=== PATIENT | male | born 1940 | race Caucasian/White ===

== ENCOUNTER 2024-02-10 16:08 | Inpatient (IN) ==
[2024-02-10 16:59] LABS: Base Excess VBG 1.9 mEq/L; HCO3 VBG 28 mmol/L; Oxygen Saturation VBG < 60.0 %; PCO2 VBG 50 mmHg (38-50); PO2 VBG 23 mmHg; pH VBG 7.36 (7.36-7.41)
[2024-02-10 17:00] LABS: iSTAT Creatinine 1.4 mg/dl (0.6-1.3); iSTAT Hemoglobin 17.7 g/dl (14.0-18.0); iSTAT Ionized Calcium 1.15 mmol/l (1.12-1.32); iSTAT Potassium 4.4 mmol/L (3.3-5.0)
[2024-02-10] MEDS: OPTIRAY 320 125ml IV ONE (17:02)
[2024-02-10 17:09] LABS: Basophils # (auto) 0.04 K/uL (0.00-0.20); Basophils % (auto) 0.3 %; Eosinophils # (auto) 0.04 K/uL (0.00-0.50); Eosinophils % (auto) 0.3 %; Hematocrit (blood only) 54.7 % (42.0-52.0); Hemoglobin 17.8 g/dl (14.0-18.0); Immature Granulocytes # (auto) 0.07 K/uL (0.01-0.20); Immature Granulocytes % (auto) 0.5 %; Lymphocytes # (auto) 0.73 K/uL (1.20-3.40); Lymphocytes % (auto) 4.7 %; Mean Corpuscular Hemoglobin 30.4 pg (25.0-34.0); Mean Corpuscular Hgb Conc 32.5 g/dL (32.0-36.0); Mean Corpuscular Volume 93.3 fL (80.0-100.0); Mean Platelet Volume 12.6 fL (9.4-12.4); Monocytes # (auto) 0.99 K/uL (0.11-0.59); Monocytes % (auto) 6.4 %; Neutrophils # (auto) 13.63 K/uL (1.40-6.50); Neutrophils % (auto) 87.8 %; Platelet Count 106 K/uL (130-400); RDW Coefficient of Variation 15.3 % (11.5-14.5); RDW Standard Deviation 51.8 fL (36.4-46.3); Red Blood Count 5.86 M/uL (4.70-6.10)
--- NOTE | 2024-02-10 17:16 | CT Scan Report ---
EXAM: CT Angiography Chest With Intravenous Contrast INDICATION: Pulmonary embolism versus CHF. TECHNIQUE: Axial computed tomographic angiography images of the chest with intravenous contrast. Sagittal and coronal reformatted images were created and reviewed. This CT exam was performed using one or more of the following dose reduction techniques: automated exposure control, adjustment of the mA and/or kV according to patient size, and/or use of iterative reconstruction technique. MIP reconstructed images were created and reviewed. CONTRAST: 116ml of Optiray 320 was administered intravenously. COMPARISON: No relevant prior studies available. FINDINGS: Pulmonary arteries: There is a segmental pulmonary embolus to the right lower lobe series 3 image 35. No saddle embolus. Aorta: No acute change noted. No thoracic aortic aneurysm or dissection. Great vessels of aortic arch: Normal variant aberrant right subclavian artery. Lungs and pleural spaces: Small left and small to moderate right layering pleural effusions present. Effusion in the right base measures 6.4 cm thickness measured at the 10th posterior rib. No pneumothorax. Paraseptal and centrilobular emphysematous changes present. There is mild septal thickening with small foci of predominantly dependent groundglass density. No bronchiectasis. There is mild dependent atelectasis in the lower lobes. No mass. Heart: Cardiomegaly. The right heart is asymmetrically dilated. There is reflux of contrast into the IVC. No significant pericardial effusion. Mediastinum: The esophagus is dilated with air. Bones/joints: Degenerative changes noted throughout the spine and both shoulders. No lytic or blastic lesions noted. Soft tissues: No abnormality noted. Lymph nodes: No abnormality noted. No enlarged lymph nodes. IMPRESSION: 1. There is a right lower lobe segmental pulmonary embolus. No saddle embolus. 2. Findings of right heart strain present. 3. Mild CHF present. ACT 112: Negative or not required by law. Electronically signed by Ketty Melchor 02-10-2024 5:16 PM
[2024-02-10] MEDS: FUROSEMIDE 40 MG/4 ML VIAL IV ONE (17:20)
[2024-02-10] MEDS: Heparin IV Adult Wt-Based Standard w/ INITIAL Bolus Protocol IV STA (17:41)
[2024-02-10] MEDS ORDERED: HEPARIN SOD (PORCINE) 1000 UNIT/ML IV ONE (17:41)
--- NOTE | 2024-02-10 17:47 | Emergency Department Note ---
Impression & Plan Pulmonary embolism, CHF (congestive heart failure), Elevated troponin, Frequent PVCs, Acute hypoxic respiratory failure ED Provider Note NAME: MARIO MYRICK AGE: 84 SEX: M : 1940 ARRIVES VIA: Walk-In INFORMANT: Patient, ED PROVIDER(S): China Tubbs MD CHIEF COMPLAINT: Shortness of breath HPI: This an 84-year-old male with history of atrial fibrillation, on Eliquis, asthma presenting for shortness of breath. Patient reported chest tightness for the past few days. He notes a new significant left lower extremity swelling. Both legs are swollen the left is significantly greater than the right. Left leg is also red. He notes midsternal chest tightness for the past few days. Denies any previous cardiac history. No previous history of blood clots. No nausea, vomiting or diarrhea. ROS: See above HPI for pertinent positives & negatives. A total of 10 systems reviewed and were otherwise negative. PAST MEDICAL HISTORY: See Below PAST SURGICAL HISTORY: See Below FAMILY HISTORY: See Below SOCIAL HISTORY: See Below HOME MEDICATIONS: See Below ALLERGIES: See Below VITALS: See Below PHYSICAL EXAMINATION: General: Chronically unwell appearing Head: Normocephalic and atraumatic Eyes: Normal inspection, extraocular muscles intact Ear, nose, throat: Normal external exam Neck: Normal range of motion Respiratory: Diminished at the bases, right worse than left Cardiovascular: Regular rate/rhythm, no murmur GI: soft, nontender, no guarding or rebound Extremities: Significantly ecchymotic versus erythematous left lower extremity swelling with pitting edema bilaterally Neuro: The patient awake and alert, appropriately conversive, no focal deficits, symmetric faces Skin: Warm, dry, and intact MEDICAL DECISION MAKING: This is an 84-year-old male with history of A-fib, on Eliquis, asthma presenting for shortness of breath. Consider PE with this left lower extremity swelling, erythema/ecchymosis in addition to his new tachycardia, hypoxia. Otherwise consider COPD, pneumonia, CHF. -[id number] creatinine used in order to expedite CT imaging due to concern of PE. Creatinine 1.4 on [id number] testing, will expedite CT. Discussed with technical publications writer who will read to the CT scanner -Patient blood work reveals leukocytosis to 15.5. Otherwise VBG is reviewed and within normal limits, pH 7.36, CO2 50. -Lactic acid 1.9, not significantly elevated. -PE study does reveal a right lower lobe pulmonary embolism with evidence of right heart strain. No saddle emboli. -Patient does have low platelets, 108 however will require heparin due to the PE/right heart strain. -Patient placed on supplemental oxygen, requiring 2 L nasal cannula Differential diagnosis: PE, CHF, DVT, COPD, pneumonia, URI Independent History obtained from: Family friend Diagnostics interpreted by me: ECG: ECG independently interpreted by me with sinus tachycardia rate of 106, right axis deviation, left bundle branch block, occasional PVC and PAC, no ST segment elevations consistent with STEMI criteria Cardiac Monitoring: An order was placed for continuous cardiac monitoring. The monitor shows a rate of 106 with sinus rhythm. Critical Care Note: I have personally spent 55 minutes of critical care time in the direct management of this patient. This includes bedside care, interpretation of diagnostic studies, and testing, discussion with consultants, patient, and family members, and other required patient management activities. This 55 minutes is in excess of all separately billable procedures. Past Med/Surg History Problem List (Updated 02/10/24 @ 19:43 by China Tubbs MD) Acute hypoxic respiratory failure (Acute) Frequent PVCs (Acute) Elevated troponin (Acute) CHF (congestive heart failure) (Acute) Pulmonary embolism (Acute) Pleural effusion Cellulitis Pulmonary embolism Ischemic cardiomyopathy Allergic asthma Normal left ventricular systolic function and wall motion Permanent atrial fibrillation Presence of bare metal stent in right coronary artery Laryngeal nerve paralysis Chronic rhinitis Thrombocytopenia Chronic anticoagulation Atrial fibrillation Dyslipidemia Hypertension Hoarseness Antiplatelet or antithrombotic long-term use CAD (coronary artery disease) Asthma Medical History Persistent atrial fibrillation Myocardial infarction Cardiac arrest Anoxic encephalopathy Surgical History S/P lumbar spinal fusion History of bilateral knee arthroplasty Family History Other Family history non-contributory Social History Smoking Status: Former smoker Hx Alcohol Use: Yes Hx Substance Use: No Preferred Language: Italian Communication Ability: Effective marital status: Single marital status details: No children Current Living Situation: Alone current occupational status: retired current occupation: Retired Professor Feels Safe at Home: Yes Allergies Allergies Allergy/AdvReac Type Severity Reaction Status Date / Time Penicillins Allergy Unknown HIVES Verified 01/29/24 09:24 lisinopril Allergy cough Verified 01/29/24 09:24 Home Meds Home Medications Medication Instructions Recorded Confirmed albuterol sulfate 90 mcg/actuation See Rx Instructions inhalation 01/07/19 01/29/24 aerosol inhaler .INHALE 1 TO 2 PUFFS fluticasone propion-salmeterol inhalation BID PRN 01/07/19 01/29/24 [Advair Diskus] Previous Rx's Medication Instructions Recorded aspirin 81 mg tablet,delayed 81 mg PO DAILY #90 tabs 09/14/20 release (Adult Low Dose Aspirin) ipratropium bromide 42 mcg (0.06 1 spray intranasal Q6 PRN allergy 09/20/20 %) nasal spray symptoms #15 mL metoprolol tartrate 50 mg tablet 50 mg PO BID #180 tabs 05/18/22 nitroglycerin 0.4 mg sublingual 0.4 mg sublingual Q5M PRN chest 05/18/22 tablet pain #25 tabs olmesartan 40 mg tablet 40 mg PO DAILY #90 tabs 10/18/22 atorvastatin 80 mg tablet 80 mg PO QPM #90 tabs 05/29/23 apixaban 5 mg tablet 5 mg PO BID #180 tabs 08/14/23 clindamycin HCl 300 mg capsule 600 mg (2 x 300 mg) PO ONCE #4 caps 08/29/23 Results & Data (ED) Vital Signs Vital Signs - 24 hr 02/10/24 16:12 02/10/24 16:32 02/10/24 16:43 Temperature 36.5 C Temperature Source Temporal Artery Scan Pulse Rate 91 H 104 H Pulse Rate [Finger] 119 H Pulse Rate from SpO2 Sensor Respiratory Rate 20 22 Respiratory Effort / Characteristics Non-Labored Spontaneous Labored Short of Breath Respiratory Depth Normal Normal Blood Pressure 202/153 H Blood Pressure [Right Arm] 94/67 L Blood Pressure Mean 169 Blood Pressure Mean [Right Arm] 76 Blood Pressure Position Sitting Pulse Oximetry 97 95 Oxygen Delivery Method Room Air Room Air Oxygen Flow Rate Sepsis Recent Fever Within 48 Hours No Sepsis New/Unexplained Change in Mental Status No Sepsis Action Taken by Nursing No Action Required Oxygen Flow Rate - Titration Pulse Oximetry Post Tiitration 02/10/24 16:45 02/10/24 17:24 02/10/24 17:35 Temperature Temperature Source Pulse Rate 104 H 102 H Pulse Rate [Finger] Pulse Rate from SpO2 Sensor 89 113 H Respiratory Rate 23 21 Respiratory Effort / Characteristics Respiratory Depth Blood Pressure 160/91 H 159/130 H Blood Pressure [Right Arm] Blood Pressure Mean 114 136 Blood Pressure Mean [Right Arm] Blood Pressure Position Pulse Oximetry 94 88 L 98 Oxygen Delivery Method Nasal Cannula Room Air Nasal Cannula Nasal Cannula Oxygen Flow Rate 2 0 2 Sepsis Recent Fever Within 48 Hours Sepsis New/Unexplained Change in Mental Status Sepsis Action Taken by Nursing Oxygen Flow Rate - Titration 2 Pulse Oximetry Post Tiitration 94 02/10/24 17:45 02/10/24 18:36 02/10/24 19:00 Temperature Temperature Source Pulse Rate 99 H 100 H Pulse Rate [Finger] 101 H Pulse Rate from SpO2 Sensor 102 H Respiratory Rate 23 18 22 Respiratory Effort / Characteristics Respiratory Depth Blood Pressure 152/89 H 131/100 Blood Pressure [Right Arm] 126/87 Blood Pressure Mean 110 112 Blood Pressure Mean [Right Arm] 100 Blood Pressure Position Pulse Oximetry 96 97 99 Oxygen Delivery Method Nasal Cannula Oxygen Flow Rate 2 Sepsis Recent Fever Within 48 Hours Sepsis New/Unexplained Change in Mental Status Sepsis Action Taken by Nursing Oxygen Flow Rate - Titration Pulse Oximetry Post Tiitration 02/10/24 19:15 Temperature Temperature Source Pulse Rate Pulse Rate [Finger] Pulse Rate from SpO2 Sensor Respiratory Rate Respiratory Effort / Characteristics Respiratory Depth Blood Pressure 142/103 H Blood Pressure [Right Arm] Blood Pressure Mean 109 Blood Pressure Mean [Right Arm] Blood Pressure Position Pulse Oximetry Oxygen Delivery Method Oxygen Flow Rate Sepsis Recent Fever Within 48 Hours Sepsis New/Unexplained Change in Mental Status Sepsis Action Taken by Nursing Oxygen Flow Rate - Titration Pulse Oximetry Post Tiitration Laboratory Data 02/10/24 16:28 02/10/24 17:31 Lab Results 02/10/24 02/10/24 02/10/24 Range/Units 16:28 16:47 16:54 WBC 15.50 H (4.8-10.8) K/ul RBC 5.86 (4.70-6.10) M/uL Hgb 17.8 (14.0-18.0) g/dl POC Hgb 17.7 (14.0-18.0) g/dl Hct 54.7 H (42.0-52.0) % POC Hct 52 (42-52) % MCV 93.3 (80.0-100.0) fL MCH 30.4 (25.0-34.0) pg MCHC 32.5 (32.0-36.0) g/dL RDW Std Deviation 51.8 H (36.4-46.3) fL RDW Coeff of Corinne 15.3 H (11.5-14.5) % Plt Count 106 L (130-400) K/uL MPV 12.6 H (9.4-12.4) fL Immature Gran % (Auto) 0.5 % Neut % (Auto) 87.8 % Lymph % (Auto) 4.7 % Mcpherson % (Auto) 6.4 % Eos % (Auto) 0.3 % Baso % (Auto) 0.3 % Neut # (Auto) 13.63 H (1.40-6.50) K/uL Lymph # (Auto) 0.73 L (1.20-3.40) K/uL Mcpherson # (Auto) 0.99 H (0.11-0.59) K/uL Eos # (Auto) 0.04 (0.00-0.50) K/uL Baso # (Auto) 0.04 (0.00-0.20) K/uL Immature Gran # (Auto) 0.07 (0.01-0.20) K/uL PT (9.0-12.0) Seconds INR (0.9-1.1) VBG pH 7.36 (7.36-7.41) VBG pCO2 50 (38-50) mmHg VBG pO2 23 mmHg VBG HCO3 28 mmol/L VBG O2 Saturation < 60.0 % VBG Base Excess 1.9 mEq/L POC Sodium 141 (135-144) mmol/L Sodium Cancelled POC Potassium 4.4 (3.3-5.0) mmol/L Potassium Cancelled POC Chloride 105 (101-112) mmol/L Chloride Cancelled Carbon Dioxide Cancelled POC Total CO2 26 (24-31) mmol/L Anion Gap Cancelled POC Anion Gap 16.0 (16-25) mmol/L POC BUN 34 H (7-18) mg/dl BUN Cancelled Creatinine Cancelled POC Creatinine 1.4 H (0.6-1.3) mg/dl Est Cr Clr Drug Dosing Cancelled eGFR Cancelled BUN/Creatinine Ratio Cancelled Glucose Cancelled POC Glucose (other) 108 H (70-99) mg/dl Lactate 1.9 (0.4-2.0) mmol/L Calcium Cancelled POC Ioniz Calcium Jerome 1.15 (1.12-1.32) mmol/l Magnesium (1.7-2.4) mg/dl Total Bilirubin Cancelled Direct Bilirubin Cancelled AST Cancelled ALT Cancelled Alkaline Phosphatase Cancelled Troponin I High Sens Cancelled B-Natriuretic Peptide Cancelled Total Protein Cancelled Albumin Cancelled Lipase Cancelled 02/10/24 Range/Units 17:31 WBC (4.8-10.8) K/ul RBC (4.70-6.10) M/uL Hgb (14.0-18.0) g/dl POC Hgb (14.0-18.0) g/dl Hct (42.0-52.0) % POC Hct (42-52) % MCV (80.0-100.0) fL MCH (25.0-34.0) pg MCHC (32.0-36.0) g/dL RDW Std Deviation (36.4-46.3) fL RDW Coeff of Corinne (11.5-14.5) % Plt Count (130-400) K/uL MPV (9.4-12.4) fL Immature Gran % (Auto) % Neut % (Auto) % Lymph % (Auto) % Mcpherson % (Auto) % Eos % (Auto) % Baso % (Auto) % Neut # (Auto) (1.40-6.50) K/uL Lymph # (Auto) (1.20-3.40) K/uL Mcpherson # (Auto) (0.11-0.59) K/uL Eos # (Auto) (0.00-0.50) K/uL Baso # (Auto) (0.00-0.20) K/uL Immature Gran # (Auto) (0.01-0.20) K/uL PT 12.6 H (9.0-12.0) Seconds INR 1.2 H (0.9-1.1) VBG pH (7.36-7.41) VBG pCO2 (38-50) mmHg VBG pO2 mmHg VBG HCO3 mmol/L VBG O2 Saturation % VBG Base Excess mEq/L POC Sodium (135-144) mmol/L Sodium 140 POC Potassium (3.3-5.0) mmol/L Potassium 4.4 POC Chloride (101-112) mmol/L Chloride 105 Carbon Dioxide 29 POC Total CO2 (24-31) mmol/L Anion Gap 6 POC Anion Gap (16-25) mmol/L POC BUN (7-18) mg/dl BUN 34 H Creatinine 1.22 POC Creatinine (0.6-1.3) mg/dl Est Cr Clr Drug Dosing 51.4 eGFR 57.74 BUN/Creatinine Ratio 27.9 H Glucose 105 H POC Glucose (other) (70-99) mg/dl Lactate (0.4-2.0) mmol/L Calcium 8.9 POC Ioniz Calcium Jerome (1.12-1.32) mmol/l Magnesium 1.9 (1.7-2.4) mg/dl Total Bilirubin 2.4 H Direct Bilirubin 0.5 H AST 32 ALT 34 Alkaline Phosphatase 89 Troponin I High Sens 58.3 H* B-Natriuretic Peptide 457 H Total Protein 6.1 Albumin 3.7 Lipase 28 Administered Medications Heparin Sodium/Dextrose (Heparin Sodium/Dextrose) 25,000 units in 500 mls @ 30 mls/hr IV .[id number] [facility]; Protocol Stop: 03/11/24 17:44 Last Admin: 02/10/24 18:07 Dose: 1,500 units/hr, 30 mls/hr Documented By: STUART Co-signed By: Discontinued Medications Furosemide (Furosemide 40 Mg/4 Ml Vial) 40 mg IV ONE ONE Stop: 02/10/24 17:11 Last Admin: 02/10/24 17:20 Dose: Not Given Documented By: STUART Heparin Sodium (Porcine) (Heparin Sod (Porcine) 1000 Unit/Ml) 7,000 units IV NOW ONE Stop: 02/10/24 18:16 Last Admin: 02/10/24 18:07 Dose: 7,000 units Documented By: STUART Co-signed By: RAGHU Heparin Sodium/Dextrose (Heparin Iv Adult Wt-Based Standard W/ Initial Bolus Protocol) 1 each IV NOW STA; Protocol Stop: 02/10/24 17:26 Last Admin: 02/10/24 17:41 Dose: Not Given Documented By: STUART Ioversol (Optiray 320 125ml) 116 ml IV ONCE ONE Stop: 02/10/24 17:01 Last Admin: 02/10/24 17:02 Dose: 116 ml Documented By: RICKEY Imaging Data Radiologist's Impression: Chest CTA 02/10/24 16:46 EXAM: CT Angiography Chest With Intravenous Contrast INDICATION: Pulmonary embolism versus CHF. TECHNIQUE: Axial computed tomographic angiography images of the chest with intravenous contrast. Sagittal and coronal reformatted images were created and reviewed. This CT exam was performed using one or more of the following dose reduction techniques: automated exposure control, adjustment of the mA and/or kV according to patient size, and/or use of iterative reconstruction technique. MIP reconstructed images were created and reviewed. CONTRAST: 116ml of Optiray 320 was administered intravenously. COMPARISON: No relevant prior studies available. FINDINGS: Pulmonary arteries: There is a segmental pulmonary embolus to the right lower lobe series 3 image 35. No saddle embolus. Aorta: No acute change noted. No thoracic aortic aneurysm or dissection. Great vessels of aortic arch: Normal variant aberrant right subclavian artery. Lungs and pleural spaces: Small left and small to moderate right layering pleural effusions present. Effusion in the right base measures 6.4 cm thickness measured at the 10th posterior rib. No pneumothorax. Paraseptal and centrilobular emphysematous changes present. There is mild septal thickening with small foci of predominantly dependent groundglass density. No bronchiectasis. There is mild dependent atelectasis in the lower lobes. No mass. Heart: Cardiomegaly. The right heart is asymmetrically dilated. There is reflux of contrast into the IVC. No significant pericardial effusion. Mediastinum: The esophagus is dilated with air. Bones/joints: Degenerative changes noted throughout the spine and both shoulders. No lytic or blastic lesions noted. Soft tissues: No abnormality noted. Lymph nodes: No abnormality noted. No enlarged lymph nodes. IMPRESSION: 1. There is a right lower lobe segmental pulmonary embolus. No saddle embolus. 2. Findings of right heart strain present. 3. Mild CHF present. ACT 112: Negative or not required by law. Electronically signed by Ketty Melchor 02-10-2024 5:16 PM Venous Doppler Study 12/08/24 16:47 EXAM: US Duplex Left Lower Extremity Veins INDICATION: Swelling and redness. TECHNIQUE: Real-time duplex ultrasound scan of the left lower extremity veins integrating B-mode two-dimensional vascular structure, Doppler spectral analysis, color flow Doppler imaging and compression. COMPARISON: No relevant prior studies available. FINDINGS: Deep veins: No DVT in the visualized common femoral, femoral or popliteal veins. The veins demonstrate normal color flow, are normally compressible, with normal phasic flow and/or augmentation response. Superficial veins: There is a 1 cm long nonocclusive thrombus in the superficial vein distant from the popliteal. Soft tissues: No abnormality noted. IMPRESSION: 1. No deep venous thrombosis of the left lower extremity. 2..Nonocclusive superficial thrombophlebitis ACT 112: Negative or not required by law. Electronically signed by Ketty Melchor 02-10-2024 5:50 PM Discharge Plan Visit Data Chief Complaint: Shortness of Breath/Dyspnea Stated Complaint: sob, chest tighness, swelling in legs mostly left ED Provider: China Tubbs Discharge Problem: Pulmonary embolism, CHF (congestive heart failure), Elevated troponin, Frequent PVCs, Acute hypoxic respiratory failure Forms Stand Alone Forms: My [facility] Prescriptions Prescriptions: No Action metoprolol tartrate 50 mg tablet 50 mg PO BID Qty: 180 3RF nitroglycerin 0.4 mg tablet, sublingual 0.4 mg SL Q5M PRN (Reason: chest pain) Qty: 25 3RF atorvastatin 80 mg tablet 80 mg PO QPM Qty: 90 3RF apixaban 5 mg tablet 5 mg PO BID Qty: 180 3RF clindamycin HCl 300 mg capsule 600 mg PO ONCE Qty: 4 3RF Rx Instructions: take 2 caps 1 hour prior to dental appointment ipratropium bromide 42 mcg (0.06 %) spray,non-aerosol 1 spray intranasal Q6 PRN (Reason: allergy symptoms) Qty: 15 8RF Rx Instructions: administer into each nostril aspirin [Adult Low Dose Aspirin] 81 mg tablet,delayed release (DR/EC) 81 mg PO DAILY Qty: 90 3RF fluticasone propion-salmeterol INH BID PRN albuterol sulfate 90 mcg/actuation HFA aerosol inhaler See Rx Instructions inhalation .INHALE 1 TO 2 PUFFS Patient Comments: 1-2 puffs inhalation every 4-6 hours as needed Rx Instructions: 1-2 puffs inhalation every 4-6 hours as needed olmesartan 40 mg tablet 40 mg PO DAILY Qty: 90 3RF Referrals Referrals: Abram Jane DO [Primary Care Provider] -
--- NOTE | 2024-02-10 17:51 | Ultrasound Report ---
EXAM: US Duplex Left Lower Extremity Veins INDICATION: Swelling and redness. TECHNIQUE: Real-time duplex ultrasound scan of the left lower extremity veins integrating B-mode two-dimensional vascular structure, Doppler spectral analysis, color flow Doppler imaging and compression. COMPARISON: No relevant prior studies available. FINDINGS: Deep veins: No DVT in the visualized common femoral, femoral or popliteal veins. The veins demonstrate normal color flow, are normally compressible, with normal phasic flow and/or augmentation response. Superficial veins: There is a 1 cm long nonocclusive thrombus in the superficial vein distant from the popliteal. Soft tissues: No abnormality noted. IMPRESSION: 1. No deep venous thrombosis of the left lower extremity. 2..Nonocclusive superficial thrombophlebitis ACT 112: Negative or not required by law. Electronically signed by Ketty Melchor 02-10-2024 5:50 PM
[2024-02-10 18:01] LABS: Albumin Level 3.7 gm/dl (3.4-5.0); BUN Creatinine Ratio 27.9 (10-20); Bilirubin Direct 0.5 mg/dl (0-0.2); Bilirubin,Total 2.4 mg/dl (0.2-1.0); Calcium 8.9 mg/dl (8.6-10.3); Creatinine Clr Calc Pharmacy 51.4 ml/min; Potassium 4.4 mmol/L (3.5-5.1); Total Protein 6.1 gm/dl (6.0-8.3)
[2024-02-10] MEDS: HEPARIN SODIUM/DEXTROSE 25,000 UNITS/500 ML BAG IV SCH (18:07)
[2024-02-10] MEDS: HEPARIN SOD (PORCINE) 1000 UNIT/ML IV ONE (18:07)
[2024-02-10 18:10] LABS: INR 1.2 (0.9-1.1); Prothrombin Time 12.6 Seconds (9.0-12.0); Troponin I High Sensitivity 58.3 pg/ml (0-20)
--- NOTE | 2024-02-10 18:19 | History & Physical Report ---
Date of Service February 10, 2024 Assessment & Plan (1) Ischemic cardiomyopathy: Plan: Last echo 09/2020 with EF 50-55%, no regional wall motion abnormalities History of BMS x 1 Patient endorses chronic dyspnea with exertion and some chest tightness going up stairs and with activity which resolves with rest and which has not occurred at rest. This is worse in the last week and concerning for underlying ischemic coronary disease Patient presents with evidence of CHF. Bilateral right greater than left pleural effusions and lower extremity swelling. Based on history with chronic shortness of breath suspect there is some slow component to this, plus the acute component with possible decompensation from the right heart strain involved with clot PE as below, although this is not a saddle. Suspect he is tolerating a relatively small clot burden poorly due to underlying coronary disease Lasix x 1 given to volume optimize cardiac preload and will continue to follow.Cardiology consulted. BNP and troponin are elevated, this may be CHF versus heart strain with PE. Patient is with trigeminy, generally 1 narrow beat followed by 3 widened beats intermittently On monitor. Optimize electrolytes. Normotensive at bedside Past procedural history: 09/2006: Inferior CT complicated by V-fib arrest. Total RCA occlusion. BMS placed RCA. EF normalized on follow-up Eliquis started in 2020 for new A-fib. Kept on aspirin daily. (2) Pulmonary embolism: Plan: Patient and reports that he takes his Eliquis twice daily reliably and is on a full 5 mg dose.? Development of clots, could be genetic failure however given underlying disproportionate right pleural effusion there is concern for malignancy causing a prothrombotic state. No obvious malignancy is seen on CTA. No abdominal symptoms or pain, could consider CTA/P with contrast in the future once appropriate for an additional dose of contrast Heparinized on admission. Patient had 1 transient blood pressure in the 90s however was 192917g immediately before and after and had no symptoms of this. At bedside assessment he is normotensive and CT is not with a saddle emboli is with a lower segmental PE. PESI class V risk 2/2 high risk and transient hypotension reviewed with [facility] about possibility for catheter directed thrombectomy. Was not recommended for quarter/half thrombolysis as hypotension was single transient measurement. While risk portiofolio is appropriate to be considered for catheter directed thrombectomy, his clot burden is fairly small. Agree likely has underlying coronary disease with poor tolerance to a small clot burden. Agree with admission and heparin overnight, and obtaining echo in the morning. If patient has severe right heart strain on echo and does not volume optimize or cannot be treated from a cardiac standpoint can consider for transfer at that point for thrombectomy but overall benefit is reduced due to clot size. (3) Pleural effusion: Plan: DDx includes malignant, congestive Lasix as noted Once clinically stable consider diagnostic tap of right pleural effusion to evaluate for underlying malignancy Plan DVT prophylaxis: Anticoagulated Disposition: PCU CODE STATUS: DNR/DNI Diet: Heart healthy History of Present Illness Primary Care Provider: DO Ricky Kaur "Arlene Pritchett is a 84-year-old male with a past medical history of permanent A-fib, CAD, asthma, prior inferior CT with BMS presented to the ER with worsened dyspnea of several days, bilateral leg swelling with left leg warmth and some tenderness, and midsternal chest tightness over the past couple of weeks. CTA shows evidence of right lower lobe segmental pulmonary emboli without saddle PE, but evidence of right heart strain are present. Pulmonary edema/mild CHF is also present Ricky presents with worsening dyspnea leg swelling and chest tightness. Patient seen at the bedside. He reports that he has had some dyspnea on exertion for a very long time and has a history of back surgery with Dr. Meyer so does not always do things like pickleball however noticed that in the last few days his shortness of breath is much worse than usual. He is also had some chest tightness although no pressure/pain. He has had some lower extremity swelling left greater than the right, and came in today when his left leg turned bright red and had some midsternal chest discomfort which passed after few minutes and much more shortness of breath than usual He reports that he has had some chest tightness with exertion going up stairs for many months, thinks this may have been worse in the last week or so with activity but he has not had any chest pain at rest. Chest tightness always goes away after couple of minutes. He is not short of breath at bedside but does appear conversationally dyspneic Seen with his at bedside. Patient drives that he takes apixaban 5 mg twice daily No hematemesis, no melena, no hematochezia. No abdominal pain. No history of cancer. Last echo with EF 50-55% 09/2020. Medical History: Reviewed Medications: Reviewed Surgical History: Reviewed Family history: Reviewed Allergies: Reviewed Social History: Reviewed Code Status: DNR/DNI Allergies Allergy/AdvReac Type Severity Reaction Status Date / Time Penicillins Allergy Unknown HIVES Verified 01/29/24 09:24 lisinopril Allergy cough Verified 01/29/24 09:24 Home Medications Medication Instructions Recorded Confirmed Type albuterol sulfate 90 mcg/actuation See Rx Instructions inhalation 01/07/19 01/29/24 History aerosol inhaler .INHALE 1 TO 2 PUFFS fluticasone propion-salmeterol inhalation BID PRN 01/07/19 01/29/24 History [Advair Diskus] aspirin 81 mg tablet,delayed 81 mg PO DAILY #90 tabs 09/14/20 01/29/24 Rx release (Adult Low Dose Aspirin) ipratropium bromide 42 mcg (0.06 1 spray intranasal Q6 PRN allergy 09/20/20 01/29/24 Rx %) nasal spray symptoms #15 mL metoprolol tartrate 50 mg tablet 50 mg PO BID #180 tabs 05/18/22 01/29/24 Rx nitroglycerin 0.4 mg sublingual 0.4 mg sublingual Q5M PRN chest 05/18/22 01/29/24 Rx tablet pain #25 tabs olmesartan 40 mg tablet 40 mg PO DAILY #90 tabs 10/18/22 01/29/24 Rx atorvastatin 80 mg tablet 80 mg PO QPM #90 tabs 05/29/23 01/29/24 Rx apixaban 5 mg tablet 5 mg PO BID #180 tabs 08/14/23 01/29/24 Rx clindamycin HCl 300 mg capsule 600 mg (2 x 300 mg) PO ONCE #4 caps 08/29/23 01/29/24 Rx Past Med/Surg History Problem List (Updated 02/10/24 @ 19:43 by China Tubbs MD) Acute hypoxic respiratory failure (Acute) Frequent PVCs (Acute) Elevated troponin (Acute) CHF (congestive heart failure) (Acute) Pulmonary embolism (Acute) Pleural effusion Cellulitis Pulmonary embolism Ischemic cardiomyopathy Allergic asthma Normal left ventricular systolic function and wall motion Permanent atrial fibrillation Presence of bare metal stent in right coronary artery Laryngeal nerve paralysis Chronic rhinitis Thrombocytopenia Chronic anticoagulation Atrial fibrillation Dyslipidemia Hypertension Hoarseness Antiplatelet or antithrombotic long-term use CAD (coronary artery disease) Asthma Medical History Persistent atrial fibrillation Myocardial infarction Cardiac arrest Anoxic encephalopathy Surgical History S/P lumbar spinal fusion History of bilateral knee arthroplasty Family History Other Family history non-contributory Social History Smoking Status: Former smoker Hx Alcohol Use: Yes Hx Substance Use: No Preferred Language: Azeri Communication Ability: Effective marital status: Single marital status details: No children Current Living Situation: Alone current occupational status: retired current occupation: Retired Professor Feels Safe at Home: Yes Physical Exam Physical Exam: General: A&Ox3. NAD. Cooperative. HEENT: Atraumatic, normocephalic. Vision and hearing grossly intact Pulm: Diminished in the bases, trace basilar crackles greater on the right than left. Patient is conversationally dyspneic Cardiac: regular, tachycardic. Radial pulses intact and symmetrical. JVD at the angle of the clavicle Abdominal: Nontender, nondistended, soft. BS present. Extremities: Left lower extremity with increased welling compared to the right. Bright erythema is present, slight warmth. Results & Data Results & Data Vital Signs (Past 12 Hours) Vital Signs Temp Pulse Pulse Resp BP BP Pulse Ox 02/10/24 17:45 99 H 23 152/89 H 96 02/10/24 17:35 102 H 21 159/130 H 98 02/10/24 17:24 88 L 02/10/24 16:45 104 H 23 160/91 H 94 02/10/24 16:43 104 H 02/10/24 16:32 119 H 22 94/67 L 95 02/10/24 16:12 36.5 C 91 H 20 202/153 H 97 O2 Del Method O2 Flow Rate 02/10/24 17:45 Nasal Cannula 2 02/10/24 17:35 Nasal Cannula 2 02/10/24 17:24 Room Air, Nasal Cannula 0 02/10/24 16:45 Nasal Cannula 2 02/10/24 16:43 02/10/24 16:32 Room Air 02/10/24 16:12 Room Air PG Care Time/CCT Total # of Minutes Spent Total Time Spent with Patient: Total time spent is greater than 50% in coordination of care (as documented) at patient's floor/unit and/or counseling patient: Coding Level of Care Code 94649 INT INP/OBS CARE 3/75MIN Diagnoses Ischemic cardiomyopathy I25.5 Pulmonary embolism I26.99 Pleural effusion J90
[2024-02-10 19:07] LABS: Magnesium 1.9 mg/dl (1.7-2.4)
[2024-02-10] MEDS ORDERED: ACETAMINOPHEN 325 MG TAB PO PRN (20:42)
[2024-02-10] MEDS: FUROSEMIDE INJ 20 MG/2 ML VIAL IV ONE (21:01)
[2024-02-10] MEDS: METOPROLOL TARTRATE 50 MG TAB PO SCH (21:01)
[2024-02-11 01:48] LABS: ANTI-Xa, UFH(UnfractionatedHep 1.29 IU/ml (0.3-0.7)
[2024-02-11 04:05] LABS: Calcium 8.5 mg/dl (8.6-10.3); Creatinine Clr Calc Pharmacy 43.9 ml/min; Potassium 4.6 mmol/L (3.5-5.1)
[2024-02-11 04:16] LABS: Basophils # (auto) 0.02 K/uL (0.00-0.20); Basophils % (auto) 0.1 %; Echinocytes 1+; Hematocrit (blood only) 45.3 % (42.0-52.0); Hemoglobin 14.7 g/dl (14.0-18.0); Immature Granulocytes # (auto) 0.06 K/uL (0.01-0.20); Immature Granulocytes % (auto) 0.4 %; Lymphocytes # (auto) 0.64 K/uL (1.20-3.40); Lymphocytes % (auto) 4.6 %; Mean Corpuscular Hemoglobin 29.8 pg (25.0-34.0); Mean Corpuscular Hgb Conc 32.5 g/dL (32.0-36.0); Mean Corpuscular Volume 91.7 fL (80.0-100.0); Mean Platelet Volume 12.2 fL (9.4-12.4); Monocytes # (auto) 0.86 K/uL (0.11-0.59); Monocytes % (auto) 6.2 %; Neutrophils # (auto) 12.19 K/uL (1.40-6.50); Neutrophils % (auto) 88.7 %; Platelet Count 79 K/uL (130-400); Platelet Estimate Decreased (Normal); Polychromasia 1+; RDW Coefficient of Variation 15.1 % (11.5-14.5); RDW Standard Deviation 50.9 fL (36.4-46.3); Red Blood Count 4.94 M/uL (4.70-6.10); White Blood Count 13.77 K/ul (4.8-10.8)
[2024-02-11 04:55] LABS: ANTI-Xa, UFH(UnfractionatedHep 0.76 IU/ml (0.3-0.7)
[2024-02-11] MEDS: ASPIRIN 81 MG ECTAB PO SCH (08:23)
[2024-02-11] MEDS ORDERED: FUROSEMIDE 40 MG/4 ML VIAL IV SCH (09:15)
--- NOTE | 2024-02-11 09:42 | XRay Report ---
XR chest 1V portable HISTORY: 84 years-old Male CHF, PE acute shortness of breath COMPARISON: CTA chest 02/10/2024 TECHNIQUE: AP view of the chest FINDINGS: Cardiac silhouette is enlarged. There is pulmonary vascular congestion and interstitial coarsening. S mall left and moderate right pleural effusions with right basilar predominant opacities. Pulmonary em physema. No pneumothorax. Bones appear grossly intact. 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 IMPRESSION: 1. Cardiomegaly with unchanged interstitial pulmonary edema. 2. Right greater than left layering pleural effusions with bibasilar atelectasis. 3. Emphysema. ACT 112: Negative or not required by law. The above report was generated using voice recognition software. It may contain grammatical, syntax o r spelling errors. Electronically signed by: Thiago Zamarripa M.D. 02/11/2024 9:40 AM
--- NOTE | 2024-02-11 09:51 | XCELERA ---
[id number] [id number]
[2024-02-11] MEDS: FUROSEMIDE 40 MG/4 ML VIAL IV SCH (10:01)
--- NOTE | 2024-02-11 10:30 | Electrocardiogram Report ---
Test Reason : Blood Pressure : */* mmHG Vent. Rate : 106 BPM Atrial Rate : 122 BPM P-R Int : 188 ms QRS Dur : 130 ms QT Int : 320 ms P-R-T Axes : * 115 13 degrees QTcB Int : 425 ms Atrial fibrillation with rapid ventricular response with premature ventricular or aberrantly conducte d complexes Right axis deviation Non-specific intra-ventricular conduction block Abnormal ECG When compared with ECG of 01-Jul-2013 10:07, Sinus rhythm no longer present HR has increased by 50 bpm Non-specific intra-ventricular conduction delay now present Confirmed by Marcell Ortega ([id number]) on 02/11/2024 10:29:56 AM Referred By: REFERRED SELF Confirmed By: Marcell Ortega
--- NOTE | 2024-02-11 12:11 | Hospitalist Progress Note ---
Date of Service February 11, 2024 Assessment & Plan (1) Pulmonary embolism: Plan: Right lower lobe seen on chest CTA. This could be contributing to the hypoxia but I suspect the main culprit is the underlying CHF. The PE occurred while he was on Eliquis so this should be considered an Eliquis failure. He is currently on a heparin drip and will eventually be switched to Pradaxa. Venous Doppler examination bilateral lower extremities negative for DVT. (2) Acute systolic (congestive) heart failure: Plan: Currently on intravenous Lasix 40 mg IV every 12 hours. Cardiology consultation is pending. Telemetry. Monitor intake and output. Serial chest x-ray (3) Acute hypoxic respiratory failure: Plan: Supplemental oxygen per nasal cannula to maintain saturation greater than 90%. Wean off as tolerated (4) Ischemic cardiomyopathy: Plan: Stable. Continue current medical management. Telemetry. History of inferior wall NV and September 2006 complicated by ventricular fibrillation, cardiac arrest. (5) Thrombocytopenia: Plan: Chronic. No active bleeding. No intervention at this time. Serial lab (6) Chronic anticoagulation: Plan: He takes Eliquis chronically. Apparently the acute right lower lobe PE occurred while on Eliquis. This should be considered an Eliquis failure. He is currently on a heparin drip and will be switched to Pradaxa prior to discharge (7) Atrial fibrillation: Plan: Chronic. Rate control. Eliquis will be switched to Pradaxa prior to discharge. Currently on a heparin drip Plan Hopeful discharge to home within the next 2 to 3 days Admission and Anticipated Discharge Date Admission Date: February 10, 2024 Subjective Alert and oriented. He appears to have several ongoing problems. He has a right lower lobe pulmonary embolus that occurred while taking Eliquis. He is currently on a heparin drip and eventually will be switched to Pradaxa. He also has acute systolic congestive heart failure. He is now on parenteral Lasix. Losartan has been added. He is intolerant of lisinopril. Current cardiac echo reveals ejection fraction of 30% with global hypokinesis. There is an area of mid inferior wall akinesis. He has moderately severe mitral regurgitation and mild aortic insufficiency. Not surprisingly, he has both left and right atrial enlargement. He is currently requiring oxygen to maintain saturation greater than 90%. This will eventually be weaned off. I spoke to his son who was in attendance. Cardiology consultation is pending. Review of Systems 2 Review of Systems: Constitutionalno fever or chills ENTno blurred vision, no double vision, no epistaxis, no sore throat Respiratorydyspnea on exertion. No wheezing. No productive cough. No hemoptysis Cardiacno palpitations, no chest pain, no syncope [place] nausea, vomiting, diarrhea, melena, hematochezia GUno urinary retention, no urinary incontinence, no dysuria, no hematuria Musculoskeletalno joint pain, no muscle tenderness. 1+ pitting edema noted bilateral lower extremities Skinchronic venous insufficiency skin changes bilateral lower extremities more pronounced on the left Neurono isolated weakness, no paresthesia Psychno depression, no anxiety Physical Exam 2 Physical Exam: General-alert and oriented x3, no fever, no chills HEENT-head atraumatic and normocephalic, pupils equal and reactive to light, extraocular muscles intact Neck-no lymphadenopathy or thyromegaly, trachea midline Chest-bibasilar inspiratory rales. No wheezing. No rhonchi Cardiac-irregular rhythm, controlled rate. Normal S1 and S2 Abdomen-normal bowel sounds, no hepatosplenomegaly Extremities-bilateral skin changes consistent with chronic venous insufficiency more pronounced on the left than the right. 1+ pitting edema bilateral lower extremities below the knees Neuro -cranial nerves II through XII intact, motor and sensory function within normal limits, strength symmetrical, no focal deficits Psych-normal affect, normal mood Results & Data Results & Data Vital Signs (Past 12 Hours) Vital Signs Temp Pulse Pulse Resp BP Pulse Ox O2 Del Method 02/11/24 11:00 36.5 C 88 18 120/66 98 Nasal Cannula 02/11/24 08:00 72 02/11/24 08:00 Nasal Cannula 02/11/24 07:52 36.7 C 90 20 135/75 96 Nasal Cannula 02/11/24 03:55 36.6 C 99 H 22 126/80 95 Nasal Cannula O2 Flow Rate 02/11/24 11:00 4 02/11/24 08:00 02/11/24 08:00 4 02/11/24 07:52 4 02/11/24 03:55 4 Laboratory Results 02/11/24 03:28 02/11/24 03:28 PG Care Time/CCT Total # of Minutes Spent Total Time Spent with Patient: Total time spent is greater than 50% in coordination of care (as documented) at patient's floor/unit and/or counseling patient: Coding Level of Care Code 99646 SUB INP/OBS CARE MIN Diagnoses Pulmonary embolism I26.99 Acute systolic (congestive) heart failure I50.21 Acute hypoxic respiratory failure J96.01 Ischemic cardiomyopathy I25.5 Thrombocytopenia D69.6 Chronic anticoagulation Z79.01 Atrial fibrillation I48.91
[2024-02-11] MEDS: LOSARTAN POTASSIUM 25 MG TAB PO SCH (14:01)
--- NOTE | 2024-02-11 14:42 | Cardiology Consultation ---
Date of Consultation February 11, 2024 Assessment & Plan (1) Dyspnea: (2) Bronchospasm: (3) Pulmonary embolism: (4) HFrEF (heart failure with reduced ejection fraction): (5) Ischemic cardiomyopathy: (6) Permanent atrial fibrillation: (7) Pleural effusion: (8) Moderate to severe mitral regurgitation: (9) Tricuspid regurgitation: Plan 84-year-old man with complex cardiac history admitted with acute on chronic worsening of dyspnea which appears multifactorial. Limited area involved in his pulmonary embolism would not in and of itself account for his degree of dyspnea and/or right heart strain, but it appears based on history of more longstanding dyspnea and current findings of reduced LVEF with significant valvular disease have left him with limited cardiopulmonary reserve and therefore vulnerable to decompensation. His asthma/bronchospasm component is substantial, airflow is limited, unfortunately recent spirometry did not show response to beta agonist bronchodilator. He did have a short course of steroids without dramatic effect as an outpatient. To address his underlying pulmonary disease, may need higher dose steroids and/or anticholinergic inhalers to improve airflow. Despite his reduced EF, based on neck veins and stable weight he does not appear grossly volume overloaded. He did receive 20 mg IV furosemide last evening with modest diuresis. He is not on diuretics as an outpatient and is not obviously volume overloaded currently, therefore would hold on further diuretics in the absence of more robust evidence of hypervolemia. Discussed with the patient and his family the implications of his significant underlying cardiopulmonary disease with additional insult of acute pulmonary embolism. Continue heparin, unless it can be more definitively determined that he missed doses of apixaban would need to shift to warfarin for his anticoagul ation failure. No recommendations for immediate therapeutic changes. If bronchospasm worsens or does not improve, may need to consider IV steroids, although this could contribute to volume overload. Will reassess volume status tomorrow and continue to follow from a cardiology standpoint. History of Present Illness Reason for Consultation: ischemic cardiomyopathy, RHS Requesting Physician: Damion Hendricks MD Attending Physician: Damion Hendricks MD History of Present Illness 84-year-old man, routinely followed by Dr. Wei, with history of CAD (IWMI/BMS RCA 2006, cardiac arrest with anoxic encephalopathy which resolved), chronic "asthma" (recent spirometry with FEV1 45% predicted, no response to bronchodilators), permanent atrial fibrillation (apixaban/metoprolol), who was admitted 02/10/2024 with acute on chronic worsening of dyspnea, found to have right segmental pulmonary embolism. Several days ago he developed abrupt left leg swelling with rubor, venous Doppl er study here showed no DVT but did show superficial thrombophlebitis. With the past few days, he noted marked worsening of his dyspnea with some persistent associated chest discomfort, prompting ER visit. Due to the chest CT findings of "right heart strain" and the patient having ongoing dyspnea at rest which seem disproportionate to his pulmonary embolism, cardiology consultation was obtained. In retrospect, patient has had dyspnea exertion for many months, at an December [address] Wei he also complained of frequent episodic coughing, evaluation by Dr. Fenton showed markedly reduced FEV1 with no response to bronchodilators, further pulmonary/allergy testing was underway. He had been stable from a cardiac standpoint with no symptoms suggesting myocardial ischemia or heart failure. Echocardiogram several years ago was unremarkable, current echocardiogram shows a reduction in LV systolic function (EF 30-35%) with significant valvular disease (moderate to severe MR/TR with dilated atria). He does have chronic bilateral leg edema, abrupt increase in edema of the left leg just for a few days, he denies orthopnea or PND. His weight has been steady. He has had atrial fibrillation for several years with good rate control and no prior problems with anticoagulation. It is unclear if he failed apixaban or if he may have missed some doses. He feels reasonable at rest on oxygen, but any activity, even walking to the bathroom, causes significant dyspneic symptoms. Allergies Allergy/AdvReac Type Severity Reaction Status Date / Time Penicillins Allergy Unknown HIVES Verified 01/29/24 09:24 lisinopril Allergy cough Verified 01/29/24 09:24 Home Medications Medication Instructions Recorded Confirmed Type albuterol sulfate 90 mcg/actuation See Rx Instructions inhalation 01/07/19 01/29/24 History aerosol inhaler .INHALE 1 TO 2 PUFFS fluticasone propion-salmeterol inhalation BID PRN 01/07/19 01/29/24 History [Advair Diskus] aspirin 81 mg tablet,delayed 81 mg PO DAILY #90 tabs 09/14/20 01/29/24 Rx release (Adult Low Dose Aspirin) ipratropium bromide 42 mcg (0.06 1 spray intranasal Q6 PRN allergy 09/20/20 01/29/24 Rx %) nasal spray symptoms #15 mL metoprolol tartrate 50 mg tablet 50 mg PO BID #180 tabs 05/18/22 01/29/24 Rx nitroglycerin 0.4 mg sublingual 0.4 mg sublingual Q5M PRN chest 05/18/22 01/29/24 Rx tablet pain #25 tabs olmesartan 40 mg tablet 40 mg PO DAILY #90 tabs 10/18/22 01/29/24 Rx atorvastatin 80 mg tablet 80 mg PO QPM #90 tabs 05/29/23 01/29/24 Rx apixaban 5 mg tablet 5 mg PO BID #180 tabs 08/14/23 01/29/24 Rx clindamycin HCl 300 mg capsule 600 mg (2 x 300 mg) PO ONCE #4 caps 08/29/23 01/29/24 Rx Patient History Medical History Past myocardial infarction Hyperlipidemia Persistent atrial fibrillation Myocardial infarction Cardiac arrest Anoxic encephalopathy Surgical History S/P lumbar spinal fusion History of bilateral knee arthroplasty Family History Other Family history non-contributory Social History Smoking Status: Former smoker Do You Dip or Chew Tobacco: No; Hx Alcohol Use: Yes Alcohol type: wine Hx Substance Use: No Preferred Language: Macedonian Communication Ability: Effective Talent Associate Required: No Beliefs That Will Affect Care: None marital status: Single marital status details: No children Current Living Situation: Alone current occupational status: retired current occupation: Retired Professor Feels Safe at Home: Yes Safety Concerns: Feels Safe At This Time Assistive Devices: Glasses Physical Exam Physical Exam: Elderly white male with mild to moderately labored breathing but no acute distress. Afebrile. BP normotensive. Pulse 88 bpm and irregular. Respirations 18 and mildly labored. Skin: Marked rubor versus ecchymosis left leg knee to ankle, no generalized lesions. HEENT: unremarkable. Neck: JVP with increased respiratory variation, average meniscus at the clavicle at 90 degrees, no carotid bruits. Lungs: Markedly decreased breath sounds with diffuse expiratory wheezing and limited airflow. No nasal flaring, abdominal paradox, but mild accessory muscle use. Cardiac: Irregular rhythm, faint heart tones without obvious murmur. Abdomen: benign. Extremities: 1-2+ right, 2-3+ left pretibial edema, pulses difficult to palpate due to edema, capillary refill 1 to 2 seconds. Neurologic: normal affect and conversation, nonfocal. Results & Data Vital Signs (Past 12 Hours) Vital Signs Temp Pulse Pulse Resp BP Pulse Ox O2 Del Method 02/11/24 11:00 97.7 F 88 18 120/66 98 Nasal Cannula 02/11/24 08:00 72 02/11/24 08:00 Nasal Cannula 02/11/24 07:52 98.1 F 90 20 135/75 96 Nasal Cannula 02/11/24 03:55 97.9 F 99 H 22 126/80 95 Nasal Cannula O2 Flow Rate 02/11/24 11:00 4 02/11/24 08:00 02/11/24 08:00 4 02/11/24 07:52 4 02/11/24 03:55 4 Laboratory Results Troponin 58 and 67. WBC 13.77, normal hemoglobin, platelet count initially 106,000 dropping to 79,000 today. Normal electrolytes, BUN 31, creatinine 1.41. BNP 457. Diagnostic Findings Admission ECG showed A-fib with ventricular rate 106 bpm, frequent PVCs versus aberrancy, nonspecific interventricular conduction delay. Compared with 2013 study, A-fib was new, heart rate increased 50 bpm, IVCD new. Echocardiogram today showed EF 30 to 35% with moderate global hypokinesis and a small area of mid inferior wall akinesis, septal motion consistent with conduction abnormality, mildly dilated RV with normal systolic function, mild AI, moderate to severe MR and TR with dilated atria, mild pulmonary h ypertension, moderately dilated IVC. Chest x-ray showed emphysema, cardiomegaly with interstitial pulmonary edema and right greater than left pleural effusions with bibasilar atelectasis. Venous Doppler left lower extremity negative for DVT. Superficial thrombophlebitis noted. Chest CT showed right lower lobe segmental pulmonary embolism with findings of "right heart strain" and mild CHF. PG Care Time/CCT Total # of Minutes Spent Total Time Spent with Patient: Total time spent is greater than 50% in coordination of care (as documented) at patient's floor/unit and/or counseling patient: Coding Level of Care Code 62398 IN/OBS CONSULT LVL 5,80M Diagnoses Dyspnea R06.00 Bronchospasm J98.01 Pulmonary embolism I26.99 HFrEF (heart failure with reduced ejection fraction) I50.20 Ischemic cardiomyopathy I25.5 Permanent atrial fibrillation I48.21 Pleural effusion J90 Moderate to severe mitral regurgitation I34.0 Tricuspid regurgitation I07.1
[2024-02-11] MEDS: WARFARIN SOD 10 MG TAB PO ONE (16:43)
[2024-02-11 21:56] LABS: ANTI-Xa, UFH(UnfractionatedHep 0.33 IU/ml (0.3-0.7)
[2024-02-12 07:33] LABS: Basophils # (auto) 0.02 K/uL (0.00-0.20); Basophils % (auto) 0.2 %; Eosinophils # (auto) 0.06 K/uL (0.00-0.50); Eosinophils % (auto) 0.5 %; Hematocrit (blood only) 47.4 % (42.0-52.0); Hemoglobin 15.3 g/dl (14.0-18.0); Immature Granulocytes # (auto) 0.05 K/uL (0.01-0.20); Immature Granulocytes % (auto) 0.4 %; Lymphocytes # (auto) 0.81 K/uL (1.20-3.40); Lymphocytes % (auto) 6.5 %; Mean Corpuscular Hemoglobin 29.7 pg (25.0-34.0); Mean Corpuscular Hgb Conc 32.3 g/dL (32.0-36.0); Mean Platelet Volume 13.2 fL (9.4-12.4); Monocytes # (auto) 1.01 K/uL (0.11-0.59); Monocytes % (auto) 8.1 %; Neutrophils # (auto) 10.57 K/uL (1.40-6.50); Neutrophils % (auto) 84.3 %; Platelet Count 77 K/uL (130-400); RDW Coefficient of Variation 15.1 % (11.5-14.5); RDW Standard Deviation 51.4 fL (36.4-46.3); Red Blood Count 5.15 M/uL (4.70-6.10); White Blood Count 12.52 K/ul (4.8-10.8)
[2024-02-12 07:41] LABS: BUN Creatinine Ratio 23.3 (10-20); Calcium 8.9 mg/dl (8.6-10.3); Creatinine Clr Calc Pharmacy 38.5 ml/min; Magnesium 1.9 mg/dl (1.7-2.4); Potassium 3.9 mmol/L (3.5-5.1)
[2024-02-12 07:54] LABS: ANTI-Xa, UFH(UnfractionatedHep 0.27 IU/ml (0.3-0.7); INR 1.5 (0.9-1.1); Prothrombin Time 15.6 Seconds (9.0-12.0)
--- NOTE | 2024-02-12 08:25 | XRay Report ---
EXAM: XR chest 1V portable CLINICAL HISTORY: CHF TECHNIQUE: X-ray image of the chest obtained in 1 frontal projection. COMPARISON: Prior CT dated 02/10/2024 for comparison. FINDINGS: Pulmonary Parenchyma: Haziness and reticular thickening in bilateral basal lung zones more on the right lower zone. Prominent bilateral parahilar markings. Bilateral CP angles are obscured suggesting pleural effusion. Heart and Mediastinum: Cardiomegaly. No mediastinal widening or masses. No hilar or mediastinal lymphadenopathy. Bony Thorax: Degenerative changes in bilateral glenohumeral joints. Spondylotic changes in the thoracic spine. The bony thorax appears intact without fractures or deformities. Soft Tissues: Soft tissues overlying the chest wall are unremarkable. IMPRESSION: 1. Haziness, reticular thickening in bilateral basal lung zones more on the right side. 2. Bilateral CP angles are obscured suggesting pleural effusion. 3. Cardiomegaly. 4. Unchanged findings compared to prior CT. Electronically signed by Libby Preciado 02-12-2024 07:55 AM
[2024-02-12] MEDS: VALSARTAN/SACUBITRIL 26/24MG TAB PO SCH (08:29)
[2024-02-12] MEDS: WARFARIN SOD 10 MG TAB PO ONE (10:42)
--- NOTE | 2024-02-12 11:51 | CT Scan Report ---
CT chest diagnostic wo con CLINICAL HISTORY: RLL PE, hypoxia, possible infarct TECHNIQUE: Multidetector row helical CT of the chest was performed. Coronal and sagittal reformations were obtained. Automated dose lowering techniques and/or adjustment according to patient size were u tilized for this exam. CT DOSE: 731.94 mGy.cm Comparison: Comparison is made to CT chest 02/22/2024 FINDINGS: Lungs and pleura: Diffuse centrilobular emphysema is seen most prominent in the upper lobes. Moderate right and small left pleural effusions are seen with associated atelectasis. Heart and pericardium: Heart size is normal. No pericardial effusion. 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 Moderate atherosclerotic disea se is seen in the coronary arteries. Mediastinum and felicia: Unremarkable. Chest wall and lower neck: Unremarkable. Abdomen: Unremarkable. Bones: Degenerative changes in the thoracic spine. IMPRESSION: Moderate right and small left pleural effusions and emphysema are seen. No definite findings of right lower lobe pulmonary infarct. ACT 112: Negative or not required by law. Electronically signed by: Ney Quiñones M.D. 02/12/2024 11:49 AM
--- NOTE | 2024-02-12 12:30 | Hospitalist Progress Note ---
Date of Service February 12, 2024 Assessment & Plan (1) Pulmonary embolism: Plan: Right lower lobe seen on chest CTA. Repeat chest CT scan done today, February 11, is negative for pulmonary infarction. He does have centrilobular emphysema and some atelectasis which undoubtedly are contributing to the hypoxia. The PE occurred while he was on Eliquis so this should be considered an Eliquis failure. He is currently on a heparin drip and is being switched to Coumadin. INR 1.5 today. Venous Doppler examination bilateral lower extremities negative for DVT. (2) Acute systolic (congestive) heart failure: Plan: Currently on intravenous Lasix 40 mg IV every 12 hours. Cardiology consultation appreciated. Telemetry. Monitor intake and output. Serial chest x-ray (3) Acute hypoxic respiratory failure: Plan: Supplemental oxygen per nasal cannula to maintain saturation greater than 90%. Incentive spirometry has been ordered. He may need home oxygen at the time of discharge. Will arrange two-step oxygen evaluation tomorrow, February 12. (4) Ischemic cardiomyopathy: Plan: Stable. Continue current medical management. Telemetry. History of inferior wall CT and September 2006 complicated by ventricular fibrillation, cardiac arrest. (5) Thrombocytopenia: Plan: Chronic. No active bleeding. No intervention at this time. Serial lab (6) Chronic anticoagulation: Plan: He takes Eliquis chronically. Apparently the acute right lower lobe PE occurred while on Eliquis. No evidence of pulmonary infarction seen on chest CT scan that was repeated today, February 11. He is being switched over to Coumadin therapy. INR is 1.5 today, February 11. He is currently on a heparin drip (7) Atrial fibrillation: Plan: Chronic. Rate control. Eliquis has been discontinued. He is currently on a heparin drip. Coumadinization is underway Plan Hopeful discharge to home tomorrow, February 12. He may need home oxygen at the time of discharge. Will arrange two-step evaluation tomorrow, February 12. He will initially follow-up in the Coumadin clinic for management Admission and Anticipated Discharge Date Admission Date: February 10, 2024 Subjective Alert and oriented. No distress. INR is risen to 1.5 with Coumadin. He remains on heparin drip until INR is therapeutic. He also remains on oxygen at [address] scan was done today, February 11 and is negative for right lower lobe pulmonary infarction. This is the area where the acute PE is. He does have evidence of emphysema and atelectasis however. Incentive spirometry has been ordered. He may need home oxygen for a while at discharge. Two-step will be ordered tomorrow, February 12. Cardiology has recommended Entresto therapy and this has been started. Creatinine is trending upward slightly with diuresis but this cannot be avoided. Platelet count is chronically low and is 77,000 today, February 11. Will follow. Review of Systems 2 Review of Systems: Constitutionalno fever or chills ENTno blurred vision, no double vision, no epistaxis, no sore throat Respiratoryno cough, no wheezing. He does have dyspnea on exertion Cardiacno palpitations, no chest pain, no syncope [place] nausea, vomiting, diarrhea, melena, hematochezia GUno urinary retention, no urinary incontinence, no dysuria, no hematuria Musculoskeletalno joint pain, no muscle tenderness Skinno bruising, no rashes, no pruritus Neurono isolated weakness, no paresthesia, no weakness Psychno depression, no anxiety Physical Exam 2 Physical Exam: General-alert and oriented x3, no fever, no chills HEENT-head atraumatic and normocephalic, pupils equal and reactive to light, extraocular muscles intact Neck-no lymphadenopathy or thyromegaly, trachea midline Chest-diminished breath sounds bilaterally. Dullness at the bases. Faint bibasilar inspiratory rales. No wheezing. No rhonchi. Cardiac-regular rate and rhythm, normal S1 and S2 Abdomen-normal bowel sounds, no hepatosplenomegaly Extremities-chronic venous insufficiency with stasis dermatitis bilaterally below the knees, more pronounced on the left than the right. 1-2+ pitting edema bilateral lower extremities below the knees Neuro-cranial nerves II through XII intact, motor and sensory function within normal limits, strength symmetrical, no focal deficits Psych-normal affect, normal mood Results & Data Results & Data Vital Signs (Past 12 Hours) Vital Signs Temp Pulse Pulse Resp BP Pulse Ox O2 Del Method 02/12/24 11:00 36.9 C 99 H 18 120/60 95 Nasal Cannula 02/12/24 10:41 Nasal Cannula 02/12/24 08:18 72 02/12/24 08:00 36.8 C 98 H 20 96 Nasal Cannula 02/12/24 02:50 36.6 C 88 19 115/66 90 Nasal Cannula O2 Flow Rate 02/12/24 11:00 4 02/12/24 10:41 2 02/12/24 08:18 02/12/24 08:00 4 02/12/24 02:50 Laboratory Results 02/12/24 07:00 02/12/24 07:00 PG Care Time/CCT Total # of Minutes Spent Total Time Spent with Patient: Total time spent is greater than 50% in coordination of care (as documented) at patient's floor/unit and/or counseling patient: Coding Level of Care Code 91798 SUB INP/OBS CARE 3/50MIN Diagnoses Pulmonary embolism I26.99 Acute systolic (congestive) heart failure I50.21 Acute hypoxic respiratory failure J96.01 Ischemic cardiomyopathy I25.5 Thrombocytopenia D69.6 Chronic anticoagulation Z79.01 Atrial fibrillation I48.91
[2024-02-12 15:24] LABS: ANTI-Xa, UFH(UnfractionatedHep 0.24 IU/ml (0.3-0.7)
--- NOTE | 2024-02-12 19:21 | Cardiology Progress Note ---
Date of Service February 12, 2024 Assessment & Plan (1) Dyspnea: (2) Bronchospasm: (3) Pulmonary embolism: (4) HFrEF (heart failure with reduced ejection fraction): (5) Ischemic cardiomyopathy: (6) Permanent atrial fibrillation: (7) Pleural effusion: (8) Moderate to severe mitral regurgitation: (9) Tricuspid regurgitation: Plan Gradual clinical improvement. Continue treatment of bronchospasm. Appears euvolemic, with creatinine increasing could taper diuretics back to furosemide 40 mg IV daily. On heparin, shifting from apixaban to warfarin given anticoagulation failure. Admission and Anticipated Discharge Date Admission Date: February 10, 2024 Subjective Feeling significantly better today, denies chest pain, subjective palpitations, or dyspnea at rest. His leg edema is diminishing. Telemetry showed atrial fibrillation with controlled rate (70-90 bpm), occasional episodes of aberrancy versus short runs of ventricular tachycardia. Physical Exam Physical Exam: No distress. BP normotensive. Pulse 98 bpm and regular. Respirations 18 but unlabored. Skin: Marked rubor versus ecchymosis left leg knee to ankle, no generalized lesions. HEENT: unremarkable. Neck: JVP with increased respiratory variation, average meniscus at the clavicle at 90 degrees, no carotid bruits. Lungs: Markedly decreased breath sounds with mild expiratory wheezing. Cardiac: Irregular rhythm, faint heart tones without obvious murmur. Abdomen: benign. Extremities: 1-2+ right, 2-3+ left pretibial edema, pulses difficult to palpate due to edema, capillary refill 1 to 2 seconds. Neurologic: normal affect and conversation, nonfocal. Results & Data Vital Signs (Past 12 Hours) Vital Signs Temp Pulse Pulse Resp BP Pulse Ox O2 Del Method 02/12/24 16:15 98.2 F 97 H 20 134/71 96 Nasal Cannula 02/12/24 14:16 72 02/12/24 11:00 98.4 F 99 H 18 120/60 95 Nasal Cannula 02/12/24 10:41 Nasal Cannula 02/12/24 08:18 72 02/12/24 08:00 98.2 F 98 H 20 96 Nasal Cannula O2 Flow Rate 02/12/24 16:15 4 02/12/24 14:16 02/12/24 11:00 4 02/12/24 10:41 2 02/12/24 08:18 02/12/24 08:00 4 Laboratory Results Normal electrolytes, BUN 37, creatinine 1.59. PG Care Time/CCT Total # of Minutes Spent Total Time Spent with Patient: Total time spent is greater than 50% in coordination of care (as documented) at patient's floor/unit and/or counseling patient: Coding Level of Care Code 56444 SUB INP/OBS CARE 2/35MIN Diagnoses Dyspnea R06.00 Bronchospasm J98.01 Pulmonary embolism I26.99 HFrEF (heart failure with reduced ejection fraction) I50.20 Ischemic cardiomyopathy I25.5 Permanent atrial fibrillation I48.21 Pleural effusion J90 Moderate to severe mitral regurgitation I34.0 Tricuspid regurgitation I07.1
[2024-02-12 23:30] LABS: ANTI-Xa, UFH(UnfractionatedHep 0.29 IU/ml (0.3-0.7)
[2024-02-13 06:06] LABS: Basophils # (auto) 0.03 K/uL (0.00-0.20); Basophils % (auto) 0.4 %; Eosinophils # (auto) 0.12 K/uL (0.00-0.50); Eosinophils % (auto) 1.4 %; Hematocrit (blood only) 42.7 % (42.0-52.0); Hemoglobin 14.2 g/dl (14.0-18.0); Immature Granulocytes # (auto) 0.02 K/uL (0.01-0.20); Immature Granulocytes % (auto) 0.2 %; Lymphocytes # (auto) 0.67 K/uL (1.20-3.40); Lymphocytes % (auto) 7.9 %; Mean Corpuscular Hemoglobin 29.9 pg (25.0-34.0); Mean Corpuscular Hgb Conc 33.3 g/dL (32.0-36.0); Mean Corpuscular Volume 89.9 fL (80.0-100.0); Mean Platelet Volume 12.7 fL (9.4-12.4); Monocytes # (auto) 0.67 K/uL (0.11-0.59); Monocytes % (auto) 7.9 %; Neutrophils # (auto) 6.95 K/uL (1.40-6.50); Neutrophils % (auto) 82.2 %; Platelet Count 78 K/uL (130-400); RDW Coefficient of Variation 14.6 % (11.5-14.5); RDW Standard Deviation 48.4 fL (36.4-46.3); Red Blood Count 4.75 M/uL (4.70-6.10); White Blood Count 8.46 K/ul (4.8-10.8)
[2024-02-13 06:23] LABS: BUN Creatinine Ratio 28.1 (10-20); Calcium 8.2 mg/dl (8.6-10.3); Creatinine Clr Calc Pharmacy 42.3 ml/min; Potassium 3.3 mmol/L (3.5-5.1)
[2024-02-13 06:25] LABS: ANTI-Xa, UFH(UnfractionatedHep 0.33 IU/ml (0.3-0.7)
[2024-02-13 06:51] LABS: INR 4.7 (0.9-1.1); Prothrombin Time 44.3 Seconds (9.0-12.0)
[2024-02-13] MEDS: POTASSIUM CHLORIDE CRTAB 20 MEQ TABCR PO STA (08:22)
[2024-02-13] MEDS ORDERED: POTASSIUM CHLORIDE CRTAB 20 MEQ TABCR PO STA (09:32)
[2024-02-13 11:41] VITALS: RESP 17; TEMP 97.3; O2SAT 97
--- NOTE | 2024-02-13 11:48 | Discharge Summary ---
Discharge Summary Date of Service February 13, 2024 Principal Dx & Hospital Course #1 = Principal Diagnosis (1) Pulmonary embolism: Right lower lobe seen on chest CTA. Repeat chest CT scan done today, February 11, is negative for pulmonary infarction. He does have centrilobular emphysema and some atelectasis which undoubtedly are contributing to the hypoxia. The PE occurred while he was on Eliquis so this should be considered an Eliquis failure. Coumadin level is now supratherapeutic and heparin drip has been discontinued. He will remain off Coumadin for 2 more days then start 5 mg daily in the late afternoon. He was given a prescription for INR measurements every Sunday and going forward. Results to Dr. Abram Jane, his primary care provider. Venous Doppler examination bilateral lower extremities negative for DVT. (2) Acute systolic (congestive) heart failure: Treated while hospitalized with intravenous Lasix 40 mg IV every 12 hours. Cardiology consultation appreciated. Telemetry. Monitor intake and output. Serial chest x-ray. He will continue Lasix 40 mg daily at discharge (3) Acute hypoxic respiratory failure: Resolved. Oxygen has been weaned off. He is now on room air. He was instructed to continue incentive spirometry use at home. (4) Ischemic cardiomyopathy: Stable. Continue current medical management. Telemetry. 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 (5) Thrombocytopenia: Chronic. No active bleeding. No intervention at this time. Serial lab (6) Chronic anticoagulation: He takes Eliquis chronically. Apparently the acute right lower lobe PE occurred while on Eliquis. No evidence of pulmonary infarction seen on chest CT scan that was repeated today, February 11. He is being switched over to Coumadin therapy. (7) Atrial fibrillation: Chronic. Rate control. Eliquis has been discontinued and he has been switched over to Coumadin therapy. Plan Home today, February 12. INR measurements every Sunday and going f orward. He will remain off Coumadin though for 2 more days since his INR is 4.7 today, February 12. He is now on room air and will not require home oxygen. Admission HPI Per Admitting Provider Ricky "Arlene Pritchett is a 84-year-old male with a past medical history of permanent A-fib, CAD, asthma, prior inferior MS with BMS presented to the ER with worsened dyspnea of several days, bilateral leg swelling with left leg warmth and some tenderness, and midsternal chest tightness over the past couple of weeks. CTA shows evidence of right lower lobe segmental pulmonary emboli without saddle PE, but evidence of right heart strain are present. Pulmonary edema/mild CHF is also present Ricky presents with worsening dyspnea leg swelling and chest tightness. Patient seen at the bedside. He reports that he has had some dyspnea on exertion for a very long time and has a history of back surgery with Dr. Meyer so does not always do things like pickleball however noticed that in the last few days his shortness of breath is much worse than usual. He is also had some chest tightness although no pressure/pain. He has had some lower extremity swelling left greater than the right, and came in today when his left leg turned bright red and had some midsternal chest discomfort which passed after few minutes and much more shortness of breath than usual He reports that he has had some chest tightness with exertion going up stairs for many months, thinks this may have been worse in the last week or so with activity but he has not had any chest pain at rest. Chest tightness always goes away after couple of minutes. He is not short of breath at bedside but does appear conversationally dyspneic Seen with his at bedside. Patient drives that he takes apixaban 5 mg twice daily No hematemesis, no melena, no hematochezia. No abdominal pain. No history of cancer. Last echo with EF 50-55% 09/2020. Medical History: Reviewed Medications: Reviewed Surgical History: Reviewed Family history: Reviewed Allergies: Reviewed Social History: Reviewed Code Status: DNR/DNI Discharge Exam General-alert and oriented x3, no fever, no chills HEENT-head atraumatic and normocephalic, pupils equal and reactive to light, extraocular muscles intact Neck-no lymphadenopathy or thyromegaly, trachea midline Chest-diminished breath sounds bilaterally. Dullness at the bases. Faint bibasilar inspiratory rales. No wheezing. No rhonchi. Cardiac-regular rate and rhythm, normal S1 and S2 Abdomen-normal bowel sounds, no hepatosplenomegaly Extremities-chronic venous insufficiency with stasis dermatitis bilaterally below the knees, more pronounced on the left than the right. 1-2+ pitting edema bilateral lower extremities below the knees Neuro-cranial nerves II through XII intact, motor and sensory function within normal limits, strength symmetrical, no focal deficits Psych-normal affect, normal mood Discharge Plan Discharge Items Patient Disposition: Home - Self-Care Reason For Visit: PE, CHF Discharge Diagnosis: Acute PE, acute hypoxic respiratory failure, acute systolic congestive heart failure Activity: Resume your previous activity Non-emergency contact: Primary Care Provider and Chief Engineer Research Call non-emergency contact if: you have any medication questions and your symptoms worsen Follow-up/Referrals: Abram Jane DO [Primary Care Provider] - Diet: Regular and Heart Healthy Addtl Attending Provider Instructions: Take warfarin( coumadin) 5 mg daily in the late afternoon. Get blood test for Coumadin level (INR) every Sunday and . The results will be sent to Dr. Jane. Prescriptions for Entresto, Coumadin, and Lasix have been sent to your pharmacy. Do not take any warfarin (Coumadin) until February 14 Pending Studies at Discharge: No Stand-Alone Forms: My [facility], Smoking Cessation Medications and DC Order Prescriptions: New sacubitril-valsartan [Entresto] 24-26 mg Tablet 1 tab PO BID Qty: 60 0RF warfarin 5 mg tablet 5 mg PO DAILY Qty: 30 0RF furosemide [Lasix] 40 mg tablet 40 mg PO DAILY Qty: 30 0RF Continued metoprolol tartrate 50 mg tablet 50 mg PO BID Qty: 180 3RF nitroglycerin 0.4 mg tablet, sublingual 0.4 mg SL Q5M PRN (Reason: chest pain) Qty: 25 3RF atorvastatin 80 mg tablet 80 mg PO QPM Qty: 90 3RF clindamycin HCl 300 mg capsule 600 mg PO ONCE Qty: 4 3RF Rx Instructions: take 2 caps 1 hour prior to dental appointment ipratropium bromide 42 mcg (0.06 %) spray,non-aerosol 1 spray intranasal Q6 PRN (Reason: allergy symptoms) Qty: 15 8RF Rx Instructions: administer into each nostril aspirin [Adult Low Dose Aspirin] 81 mg tablet,delayed release (DR/EC) 81 mg PO DAILY Qty: 90 3RF fluticasone propion-salmeterol INH BID PRN albuterol sulfate 90 mcg/actuation HFA aerosol inhaler See Rx Instructions inhalation .INHALE 1 TO 2 PUFFS Patient Comments: 1-2 puffs inhalation every 4-6 hours as needed Rx Instructions: 1-2 puffs inhalation every 4-6 hours as needed olmesartan 40 mg tablet 40 mg PO DAILY Qty: 90 3RF Discontinued apixaban 5 mg tablet 5 mg PO BID Qty: 180 3RF Discharge Orders: Discharge Order- CHF (Routine); Ordered 02/13/24 Ordered By: Damion Hendricks Admission Data Admit Date/Time: 02/10/24 18:56 Attending Provider: Damion Hendricks Admit Provider: Lino Isaac Primary Care Provider: Abram Jane Other Providers: Lino Isaac; Marcell Ortega Hospital Stay Data Consultations 02/10/24 17:39 ED Decision to Admit Stat 02/10/24 20:42 Consult Cardiology Routine Diagnostic Imagining Performed 02/10/24 16:46 CT for pulmonary embolism PE [CT angio chest PE protocol] Stat 02/10/24 16:47 US venous doppler LE LT Stat 02/12/24 09:52 CT chest diagnostic wo con Urgent Pending Results Patient Have Any Pending Studies at Discharge: No Discharge Instructions Given to Patient (Per Discharging Provider) Take warfarin( coumadin) 5 mg daily in the late afternoon. Get blood test for Coumadin level (INR) every Sunday and . The results will be sent to Dr. Jane. Prescriptions for Entresto, Coumadin, and Lasix have been sent to your pharmacy. Do not take any warfarin (Coumadin) until February 14 Total Time Total Time Spent Total Time Spent (In Minutes): 50-minute Coding Level of Care Code 98548 INP/OBS DISCH >30 MIN Diagnoses Pulmonary embolism I26.99 Acute systolic (congestive) heart failure I50.21 Acute hypoxic respiratory failure J96.01 Ischemic cardiomyopathy I25.5 Thrombocytopenia D69.6 Chronic anticoagulation Z79.01 Atrial fibrillation I48.91
[2024-02-13 12:22] VITALS: BP 109/58
[2024-02-13 14:33] VITALS: PULSE 77
--- NOTE | 2024-02-13 15:14 | Cardiology Progress Note ---
Date of Service February 13, 2024 Assessment & Plan (1) Dyspnea: (2) Bronchospasm: (3) Pulmonary embolism: (4) HFrEF (heart failure with reduced ejection fraction): (5) Ischemic cardiomyopathy: (6) Permanent atrial fibrillation: (7) Pleural effusion: (8) Moderate to severe mitral regurgitation: (9) Tricuspid regurgitation: Plan With decline in LV systolic function and pleural effusions reasonable to discharge on diuretic. Recommend follow-up in heart failure clinic with Henny Rodriguez PA-C as well as with Dr. Wei, his primary animal science instructor. Being treated as "treatment failure" of anticoagulation given apparent pulmonary embolism on apixaban, however there is significant question in regards the patient's compliance with apixaban and follow-up CT did not re-demonstrate pulmonary embolism, given uncertainty it's reasonable to shift from apixaban to warfarin, but given uncertainty if he has compliance issues with warfarin it may also be reasonable to shift back to apixaban at some point. Well compensated at the time of discharge. Admission and Anticipated Discharge Date Admission Date: February 10, 2024 Subjective Feels much better, being discharged today. No chest pain, dyspnea at low levels of exertion with or rest, subjective palpitations, or lightheadedness. Leg swelling has diminished. Telemetry showed atrial fibrillation with controlled ventricular response of 60 to 80 bpm. Physical Exam Physical Exam: No distress. BP normotensive. Pulse 77 bpm and irregular. Respirations 18 but unlabored. Skin: Marked rubor versus ecchymosis left leg knee to ankle, no generalized lesions. HEENT: unremarkable. Neck: JVP with increased respiratory variation, average meniscus at the clavicle at 90 degrees, no carotid bruits. Lungs: Markedly decreased breath sounds with mild expiratory wheezing. No accessory muscle use. Cardiac: Irregular rhythm, faint heart tones without obvious murmur. Abdomen: benign. Extremities: 1+ right, 2+ left pretibial edema, pulses difficult to palpate due to edema, capillary refill 1 to 2 seconds. Neurologic: normal affect and conversation, nonfocal. Results & Data Vital Signs (Past 12 Hours) Vital Signs Temp Pulse Pulse Resp BP BP Pulse Ox 02/13/24 14:33 77 02/13/24 12:21 97.3 F L 85 17 119/75 109/58 L 97 02/13/24 11:40 97.3 F L 85 17 119/75 97 02/13/24 08:20 76 109/58 L 02/13/24 07:31 68 O2 Del Method 02/13/24 14:33 02/13/24 12:21 02/13/24 11:40 Room Air 02/13/24 08:20 02/13/24 07:31 Laboratory Results Potassium 3.3, BUN 41, creatinine 1.46. Diagnostic Findings Chest CT yesterday showed moderate right and small left pleural effusions and emphysema, no definite findings of right lower lobe pulmonary infarct. PG Care Time/CCT Total # of Minutes Spent Total Time Spent with Patient: Total time spent is greater than 50% in coordination of care (as documented) at patient's floor/unit and/or counseling patient: Coding Level of Care Code 87305 SUB INP/OBS CARE 2/35MIN Diagnoses Dyspnea R06.00 Bronchospasm J98.01 Pulmonary embolism I26.99 HFrEF (heart failure with reduced ejection fraction) I50.20 Ischemic cardiomyopathy I25.5 Permanent atrial fibrillation I48.21 Pleural effusion J90 Moderate to severe mitral regurgitation I34.0 Tricuspid regurgitation I07.1
== END 2024-02-13 15:57 | disposition home or self-care (01) | DRG 175 ==
LOC: ED 16:08 → SUATTDRO 18:56 → EDINP 18:56 → 2S 20:42